=== PATIENT | female | born 1995 | race Two or more races ===

== ENCOUNTER 2018-08-16 02:13 | Emergency (ER) | payer SELFPAY ==
--- NOTE | 2018-08-16 02:38 | PDOC ---
History of Present Illness - General Stated Complaint: VOMITING/ 9 WEEKS Time Seen by Provider: 08/16/18 02:35 History Source: Patient Exam Limitations: No Limitations - History of Present Illness Initial Comments: 08/16/18 04:01 Pt is a 23 y/o F A1, currently 7 weeks by dates, who presents to the ED for nausea, vomiting, and abdominal pain for 2 days. Pt states that her pain is located in her lower abdomen. She states that her last ended in a miscarriage and was considered to be a molar . She states that she had an ultrasound done at 5 weeks gestational age, and they were unable to locate an IUP at that time. Denies vaginal bleeding, fever, chills, recent illness, sick contacts, diarrhea, constipation, frequency, urgency and hematuria. Past History - Travel Traveled outside of the country in the last 30 days: No Close contact w/someone who was outside of country & ill: No - Past Medical History Allergies/Adverse Reactions: Allergies Allergy/AdvReac Type Severity Reaction Status Date / Time No Known Allergies Allergy Verified 08/16/18 02:42 Home Medications: Ambulatory Orders Diazepam [Valium] 2 mg PO TID PRN #9 tablet MDD 6mg 06/24/16 Naproxen [Naprosyn -] 500 mg PO BID PRN #14 tablet 06/24/16 - Immunization History Immunization Up to Date: Yes - Suicide/Smoking/Psychosocial Hx Smoking History: Current every day smoker Number of Cigarettes Smoked Daily: 20 Hx Alcohol Use: No Drug/Substance Use Hx: No Substance Use Type: None Review of Systems - Review of Systems Able to Perform ROS?: Yes Comments:: 08/16/18 04:03 CONSTITUTIONAL: Absent: fever, chills, diaphoresis, generalized weakness, malaise, loss of appetite HEENT: Absent: rhinorrhea, nasal congestion, throat pain, throat swelling, difficulty swallowing, mouth swelling, ear pain, eye pain, visual Changes CARDIOVASCULAR: Absent: chest pain, loss of consciousness, palpitations, irregular heart rate, peripheral edema RESPIRATORY: Absent: cough, shortness of breath, dyspnea with exertion, orthopnea, wheezing, stridor, hemoptysis GASTROINTESTINAL: Present: abdominal pain, nausea, vomiting Absent: abdominal distension, diarrhea, constipation, melena, hematochezia GENITOURINARY: Absent: dysuria, frequency, urgency, hesitancy, hematuria, flank pain, genital pain MUSCULOSKELETAL: Absent: myalgia, arthralgia, joint swelling SKIN: Absent: rash, itching, pallor HEMATOLOGIC/IMMUNOLOGIC: Absent: easy bleeding, easy bruising, lymphadenopathy, frequent infections ENDOCRINE: Absent: unexplained weight gain, unexplained weight loss, heat intolerance, cold intolerance NEUROLOGIC: Present: headache Absent: focal weakness or paresthesias, dizziness, unsteady gait, seizure, mental status changes, bladder or bowel incontinence PSYCHIATRIC: Absent: anxiety, depression, suicidal or homicidal ideation, hallucinations. Is the patient limited Bengali proficient: No *Physical Exam - Physical Exam Comments: 08/16/18 04:12 GENERAL: Well developed, well nourished. Awake and alert. Appears uncomfortable. HEENT: Normocephalic, atraumatic. PERRLA, EOMI. No conjunctival pallor. Sclera are non- icteric. Moist mucous membranes. Oropharynx is clear. NECK: Supple. Full ROM. No JVD. Carotid pulses 2+ and symmetric, without bruits. No thyromegaly. No lymphadenopathy. CARDIOVASCULAR: Regular rate and rhythm. No murmurs, rubs, or gallops. Distal pulses are 2+ and symmetric. PULMONARY: No evidence of respiratory distress. Lungs clear to auscultation bilaterally. No wheezing, rales or rhonchi. ABDOMINAL: TTP of the L adnexam region. Soft. Non-distended. No rebound or guarding. No organomegaly. Normoactive bowel sounds. MUSCULOSKELETAL Normal range of motion at all joints. No bony deformities or tenderness. No CVA tenderness. EXTREMITIES: No cyanosis. No clubbing. No edema. No calf tenderness. SKIN: Warm and dry. Normal capillary refill. No rashes. No jaundice. NEUROLOGICAL: Alert, awake, appropriate. Cranial nerves 2-12 intact. No deficits to light touch and temperature in face, upper extremities and lower extremities. No motor deficits in the in face, upper extremities and lower extremities. Normoreflexic in the upper and lower extremities. Normal speech. Toes are down- going bilaterally. Gait is normal without ataxia. PSYCHIATRIC: Cooperative. Good eye contact. Appropriate mood and affect. Medical Decision Making - Medical Decision Making 08/16/18 03:53 Pt is a 23 y/o F who presents to the ED for lower abdominal pain, nausea, vomiting and headache in the setting of early -On exam, pt with tenderness to the L adenexal region. -Pt states she had an US done at 5 weeks; however, an IUP could not be identified at that time -Concern for ectopic -Labs, TVUS, medication ordered -Explained to patient that US will be done in the morning as the US department is closed at this time -Pt does not want to wait for the exam and wants to leave AMA. Unable to perform a vaginal exam as pt refused. States she will be going to [facility] and will wait to do her work up there. -The patient is clinically sober, free from distracting injury, appears to have intact insight and judgment and reason and in my opinion has the capacity to make decisions. The patient presents with abdominal pain, nausea and vomiting in the setting of early . I have explained that I am concerned that this may represent an ectopic , or miscarriage; they have verbalized an understanding of my concerns. I have discussed the need for ultrasound and lab work to get more information about potential causes of the patient's abdominal pain. I have told the patient that if they leave and have an ectopic , they could get much worse, could become critically ill, and could possibly become disabled or . I have offered to give the patient more pain medication. I have asked them to stay in the hospital for serial abdominal exams. I have discussed these concerns with the patients who is at the bedside and I am unable to convince them to stay for further evaluation. The patient is not willing to undergo an ultrasound as she does not want to wait until the department opens at 7:30am. She is unwilling to stay overnight for monitoring. She is refusing any further care and is leaving against medical advice. I am unable to convince the patient to stay, I have asked them to return as soon as possible to complete their evaluation. Family states they plan on going to [facility] at this time. *DC/Admit/Observation/Transfer Diagnosis at time of Disposition: Vomiting Qualifiers: Vomiting type: unspecified Vomiting Intractability: unspecified Nausea presence : unspecified Qualified Code(s): R11.10 - Vomiting, unspecified - Discharge Dispostion Disposition: AGAINST MEDICAL ADVICE Condition at time of disposition: Fair - Referrals - Patient Instructions - Post Discharge Activity
[2018-08-16] MEDS ORDERED: METOCLOPRAMIDE HCL INJECTION 10 MG/2 ML VIAL IVPB ONE (02:46)
[2018-08-16] MEDS ORDERED: SODIUM CHLORIDE 1,000 ML IV STA (02:46)
[2018-08-16] MEDS ORDERED: ACETAMINOPHEN 1000 MG/100 ML VIAL (NON FORMULARY) IVPB ONE (02:46)
--- NOTE | 2018-08-16 02:55 | PDOC ---
*Physical Exam - Vital Signs Last Vital Signs Temp Pulse Resp BP Pulse Ox 97.4 F L 82 20 102/56 L 98 08/16/18 02:13 08/16/18 02:13 08/16/18 02:13 08/16/18 02:13 08/16/18 02:13 Medical Decision Making - Medical Decision Making 08/16/18 02:55 Pt seen by the Advanced Practice Provider under my direct supervision Ancillary studies reviewed I agree with plan as outlined by the Advanced Practice Provider TREY Perkins *DC/Admit/Observation/Transfer Diagnosis at time of Disposition: Vomiting - Discharge Dispostion Disposition: AGAINST MEDICAL ADVICE Condition at time of disposition: Fair - Referrals - Patient Instructions - Post Discharge Activity
[2018-08-16 02:56] VITALS: BP 102/56; PULSE 82; TEMP 97.4; BMI 21.0
== END 2018-08-16 03:30 | disposition left against medical advice (07) ==
LOC: JER 02:13
DX: O26.891 Other specified pregnancy related conditions, first trimester (principal); R10.32 Left lower quadrant pain; R11.10 Vomiting, unspecified; Z3A.09 9 weeks gestation of pregnancy
CPT/HCPCS: 99281-25

== ENCOUNTER 2019-05-01 01:48 | Day surgery (SDC) | payer OTHER | END 2019-05-02 18:37 | disposition home or self-care (01) | LOC: JASUSAT 05-02 18:37 → JER 01:48 → JASUSAT 06:56 → J8W 14:07 ==